=== PATIENT | female | born 1945 | race Caucasian/White ===

== ENCOUNTER → 2018-02-09 09:18 | Outpatient (CLI) | payer MEDICARE, SELFPAY ==
--- NOTE | 2018-02-09 09:23 | RAD_ITS ---
PROCEDURE: Fluoroscopic guided Hip Injection DATE: February 09, 2018. INDICATION: Female, 72 years old. Chronic hip pain. PHYSICIAN: Gary Kerr M.D. MEDICATIONS: 80 mg of Depomedrol, 4 cc of 1% lidocaine. 2% Lidocaine administered subcutaneously for local anesthesia. ACCESS SITE: Left hip. NEEDLE: 22-gauge spinal needle. FLUOROSCOPY TIME (if supplied): (24 seconds) minutes/seconds FINDINGS: The risks, benefits, and alternatives to the procedure were explained to the patient. The specific risks of bleeding, infection, and neurovascular injury were detailed and accepted. Witnessed informed consent was obtained. A 22-gauge spinal needle was positioned under radiographic fluoroscopic localization. Approximately 2 cc of Isovue-300 instilled for localization purposes. Medication was then injected. The patient tolerated the procedure well without any immediate complications. The patient was placed supine with head elevated and returned to the floor in stable condition. RAD/Inj/Asp Gustavo Jt Should/Hip/Knee IMPRESSION: 1. Successful fluoroscopic guided hip injection. Electronically Signed: Gary Kerr MD at 10:23 EDT Tel [phone], Service support ,
== END ==
PROVIDERS: Family Provider Family Medicine; PCP Family Medicine; Visit Provider Family Medicine
DX: G89.29 Other chronic pain (principal); M25.559 Pain in unspecified hip; M19.90 Unspecified osteoarthritis, unspecified site
CPT/HCPCS: 20610; 77002; Q9965

== ENCOUNTER → 2018-02-14 07:25 | Outpatient (CLI) | payer MEDICARE, SELFPAY ==
--- NOTE | 2018-02-14 07:27 | BI_ITS ---
MAMMOGRAPHY - BILATERAL SCREENING REASON FOR EXAM: Female, 72 years old. Routine annual screening examination. PERTINENT HISTORY: Aunt with breast cancer. Remote left ultrasound-guided breast biopsy. TECHNIQUE: Digital bilateral breast clemencia (3D mammographic acquisition) in the CC and MLO projections. 2-D mediolateral oblique (MLO) and craniocaudad (CC) views of both breasts were obtained. CAD: Full Field Digital Mammography with Computer Added Detection was performed. COMPARISON: Comparison is made with prior examination dated February 04, 2017 and January 26, 2016. FINDINGS: Breast Composition: There are scattered areas of fibroglandular density. There are no dominant masses or suspicious calcifications. Stable 8.1 mm well-defined nodule in the lateral retroareolar region of the left breast. A tissue clip marker is seen at that site. No new abnormality is seen. No other significant abnormalities are identified. There has been no significant change since the prior study. BI/SCREENING MAMM (CAD), BILAT IMPRESSION: Stable bilateral screening mammogram. Yearly follow-up mammogram recommended. (A) ASSESSMENT CATEGORY: BIRADS Category 2: Benign. A letter regarding these results will be sent to the patient by the facility within 30 days. Approximately 10% of breast cancers are not detected by mammography. A normal mammogram should not delay biopsy of a clinically suspicious abnormality. [id number] Electronically Signed: Gary Kerr MD at 8:13 EDT Tel [phone], Service support ,
== END ==
PROVIDERS: Family Provider Family Medicine; PCP Family Medicine; Visit Provider Family Medicine
DX: Z12.31 Encounter for screening mammogram for malignant neoplasm of breast (principal)
CPT/HCPCS: 77063; 77067

== ENCOUNTER → 2018-11-10 12:23 | Outpatient (CLI) | payer MEDICARE, SELFPAY ==
--- NOTE | 2018-11-10 12:26 | RAD_ITS ---
STUDY: X-RAY CHEST REASON FOR EXAM: Female, 72 years old. Cough. TECHNIQUE: PA and lateral chest. COMPARISON: None. FINDINGS: The lungs are clear and expanded. There is no demonstrated pleural abnormality. Normal size heart. Normal mediastinum and marcos. Normal visualized pulmonary arteries. Normal visualized aortic arch and descending thoracic aorta. Normal visualized thoracic spine. Normal visualized ribs, clavicles, and shoulders. There is no demonstrated abnormality of the visualized soft tissue structures of the upper abdomen. RAD/Chest PA and Lateral IMPRESSION: No acute cardiopulmonary disease. Electronically Signed: Stephen Gan MD at 7:57 EST , Service support ,
== END ==
PROVIDERS: Family Provider Family Medicine; PCP Family Medicine; Referring Provider Family Medicine; Visit Provider Family Medicine
DX: R05 Cough (principal)
CPT/HCPCS: 71046

== ENCOUNTER 2018-12-16 12:29 | Emergency (ER) | payer MEDICARE, SELFPAY ==
[2018-12-16 12:30] VITALS: BP 112/67; PULSE 89; RESP 15; TEMP 38.3; O2SAT 97; BMI 23.5
[2018-12-16 12:56] VITALS: O2SAT 98
--- NOTE | 2018-12-16 13:00 | CT_ITS ---
STUDY: CTA CHEST REASON FOR EXAM: Female, 73 years old. Cough for 3 months RADIATION DOSAGE (If Supplied By Facility): CTDIvol = ( 14.37 ) mGy, DLP = ( 400.54 ) mGycm TECHNIQUE: The examination was performed with the intravenous administration of Isovue 370 75 IV. Post-processing of the angiographic images was performed, with multiplanar reformation and 3D reconstruction. Individualized dose optimization techniques were used for this CT. COMPARISON: November 10, 2018 CT scan abdomen and pelvis FINDINGS: Normal enhancement of the main pulmonary artery and right and left pulmonary arteries. Normal enhancement of the bilateral peripheral pulmonary arteries. There is no demonstrated pulmonary embolism. The aorta is tortuous. There is a ductus diverticulum present in the underside of the aorta lateral view image 172 series axial T2. There is no demonstrated aortic dissection. There is borderline cardiac enlargement. There is a mild to moderate pericardial effusion. At the base of the heart measuring up to 1 cm. Normal mediastinum. Normal hilar regions. Normal visualized trachea and bronchi. There is biapical scarring. There are few scattered areas of lucency suggesting air trapping. There is a small left pleural effusion. There is associated minimal lower lobe atelectasis. This is also associated with a subtle focus of diaphragmatic herniation. There is a trace focus of right pleural fluid. Normal chest wall structures. There are degenerative changes of thoracic spine. The liver appears fatty infiltrated. Within the posterior aspect of the right hepatic lobe there is a well-circumscribed 1 cm cystic structure. There is a hiatal hernia measuring 2.[address]/CTA Chest W/WO Contrast IMPRESSION: No evidence of pulmonary embolism. No evidence of aortic dissection. Small to moderate pericardial effusion. Borderline cardiomegaly.. Small left greater than right effusions minimal atelectasis. Few areas of minimal air trapping. Benign-appearing hepatic cysts. Small hiatal hernia. Electronically Signed: Layne Calvo MD at 14:25 EDT Tel , Service support ,
[2018-12-16] MEDS: 0.9% Normal Saline 1,000 ML 1000 ML IV (13:31)
[2018-12-16 13:33] VITALS: BP 128/73; PULSE 90; RESP 14; TEMP 36.7; O2SAT 97
[2018-12-16 13:38] LABS: Mucous, Urine 0 SEEN /hpf (<or=2+)
[2018-12-16 13:40] LABS: Absolute Lymphocyte Count 1.36 X10^3/ul (0.83-4.51); Absolute Neutrophil Count 6.7 X10^3/uL (2.0-7.7); Basophil# 0.03 X10^3/uL; Basophil% 0.3 % (0-1); Eosinophil# 0.12 X10^3/uL; Eosinophils% 1.3 % (0-5); Hematocrit 34.6 % (37-47); Hemoglobin 10.6 g/dl (12.0-15.0); Lymphocyte # 1.36 X10^3/ul (4.0); Lymphocyte % 14.5 % (19-41); Mean Corp Hgb Conc 30.6 g/gl (32-36); Mean Corpuscular Hgb 28.4 pg (27.0-32.0); Mean Corpuscular Volume 92.8 fL (81-99); Mean Platelet Vol. 9.1 fl (6.2-12.0); Monocyte# 1.19 X10^3/uL; Monocyte% 12.7 % (0-10); Neutrophil # 6.68 X10^3/uL (2.7-7.7); Platelet Count 412 K/mm3 (150-450); RBC Distribution Width CV 12.1 % (11.6-14.6); RBC Distribution Width SD 39.8 fl (35.1-43.9); Red Blood Count 3.73 M/mm3 (4.2-5.4); White Blood Count 9.4 K/mm3 (4.4-11.0)
[2018-12-16 13:42] LABS: International Normalized Ratio 1.3; Prothrombin Time (Protime)PT. 15.7 SECONDS (11.7-14.9)
[2018-12-16 13:43] LABS: POSITIVE COUNT NO; POSITIVE DIFFERENTIAL NO; POSITIVE MORPHOLOGY NO; Partial Thromboplast Time 42.2 Seconds (24.1-36.2)
--- NOTE | 2018-12-16 13:43 | ED.DCSUM_ITS ---
- ER Visit Summary Date of Service: 12/16/18 Chief Complaint: Shortness of breath and cough History of Present Illness: The patient is a 73 F who presents with shortness of breath and cough that has been getting worse over the past 2 months. Patient states she has had a fever of 102 at home. Patient states her breathing is worse with any exertion. Patient states she is coughing up some white sputum with some blood streaks. Patient denies any chest pain. Patient denies any sore throat or rhinorrhea. Patient has been on Levaquin for the past 8 days. Patient was on Zithromax prior to that. Physical Examination: Vital signs are stable. Patient was febrile here with a temperature of 101.0. Patient is in no acute distress. Oral mucosa is pink and moist. Neck is supple. Trachea is midline. There is no JVD noted. Heart was regular rate and rhythm. Lungs are clear and equal bilaterally. There is good respiratory effort noted. Abdomen is soft. Bowel sounds are normal. There is no tenderness noted. Extremities are intact x4. There is no edema noted. There is no calf tenderness noted. Test Results: CBC was normal. Basic metabolic profile was normal. Urinalysis shows leukocyte esterase of 100, white blood cell count of 10-25, red blood cell count of 10-25, and 0-5 epithelial cells. CTA of the chest was obtained. There is no evidence of pulmonary embolism or dissection. Patient has bilateral mild effusions and minimal atelectasis. There is a small pericardial effusion. Emergency Department Course and Treatment: Given a dose of Macrobid here. Patient was given a prescription for Macrobid. Case was discussed with Dr. James. He will follow-up with the patient as an outpatient. Patient was instructed to finish her Levaquin as prescribed. Patient understood and was agreeable with the plan. All questions were answered. Disposition: Discharge home Impression: 1. Acute febrile illness 2. Urinary tract infection This note was generated with [employer] dictation software. It may contain incorrect words, spelling, and punctuation that were not noted in review of the chart prior to signing ED Disposition - Plan for ED Patient: Disposition: Home or Assisted Living Diagnosis: Urinary tract infection, Acute febrile illness Instructions: ED Fever Unconf Cause, ED UTI Cystitis Female Prescriptions: Nitrofurantoin Macrocrystals [Macrobid] 100 mg PO Q12 #14 cap Referrals: Ranney,Vick, MD [Primary Care Provider] - 3-5 Days
[2018-12-16 13:47] LABS: Anion Gap 7 (5-15); BUN 18 mg/dL (7-18); BUN/Creat Ratio 19.2 RATIO (10-20); Calcium,Total 9.2 mg/dL (8.5-10.1); Chloride 101 mmol/L (98-107); Creatinine, Serum 0.94 mg/dL (0.55-1.02); EST Glomerular Filtration Rate 62 mL/min (>60); Est Glom Filt Rate - Afr Amer 75 mL/min (>60); Estimated Creatinine Clearance 46.71 ml/min; Glucose 104 mg/dL (74-106); Potassium 4.6 mmol/L (3.5-5.1); Sodium Level 137 mmol/L (136-145)
[2018-12-16 13:52] LABS: Color, Urine Yellow (Yellow); Glucose, Dipstick Normal (Normal); Ketone-Dipstick Negative (Negative); Leukocyte Esterase-Dipstick 100 /ul (Negative); Nitrite-Dipstick Negative (Negative); Occult Blood-Urine 150 /ul (Negative); Protein-Dipstick Negative (Negative); Specific Gravity, Urine 1.005 (1.002-1.030); Urine Bilirubin Dipstick Negative (Negative); Urine Clarity Sl. Cloudy (Clear); Urine Urobilinogen 1 mg/dl (Normal)
[2018-12-16 13:58] LABS: Red Blood Cells-Urine 10-25 SEEN /hpf (0-5); Squamous Epithelial Cells - UA 0-5 SEEN /hpf (5-10); White Blood Cells 10-25 SEEN /hpf (0-5)
[2018-12-16 13:59] LABS: Bacteria 1+ /hpf (None Seen)
[2018-12-16 14:00] VITALS: BP 112/64; PULSE 91; RESP 14; TEMP 36.8; O2SAT 96
[2018-12-16 15:42] VITALS: BP 117/74; PULSE 89; RESP 16; O2SAT 97
--- NOTE | 2018-12-18 15:13 | CASEMGMT ---
Called patient to f/u post ER visit, left a VM to contact this group underwriter if having any questions/concerns regarding care. Catina Mccann RNCM
== END 2018-12-16 15:43 | disposition home or self-care (01) ==
PROVIDERS: Emergency Provider Emergency Medicine; Family Provider Family Medicine; PCP Family Medicine
DX: R50.9 Fever, unspecified (principal); N39.0 Urinary tract infection, site not specified; Z87.891 Personal history of nicotine dependence; I31.3 Pericardial effusion (noninflammatory); R06.02 Shortness of breath
CPT/HCPCS: 36415; 71275; 80048; 81001; 85025; 85610; 85730; 87040; 87086; 87088; 99284; J7030; Q9967; A4216

== ENCOUNTER → 2019-02-03 13:16 | Outpatient (CLI) | payer MEDICARE, SELFPAY ==
[2019-02-03 13:57] LABS: Hematocrit 34.3 % (37-47); Hemoglobin 10.2 g/dl (12.0-15.0); Mean Corp Hgb Conc 29.7 g/gl (32-36); Mean Corpuscular Hgb 25.6 pg (27.0-32.0); Platelet Count 495 K/mm3 (150-450); RBC Distribution Width CV 14.8 % (11.6-14.6); RBC Distribution Width SD 44.7 fl (35.1-43.9); Red Blood Count 3.99 M/mm3 (4.2-5.4)
[2019-02-03 13:59] LABS: Scan Indicated on CBC? Y/N NO
[2019-02-03 14:14] LABS: ALB/GLOB Ratio 0.5 RATIO (0.9-2.4); AST(SGOT) 13 U/L (15-37); Alanine Aminotransfer ALT/SGPT 13 U/L (13-56); Albumin, Serum 2.7 g/dL (3.2-5.0); Alkaline Phosphatase 101 U/L (45-117); Anion Gap 2 (5-15); BUN 14 mg/dL (7-18); BUN/Creat Ratio 18.7 RATIO (10-20); Calcium,Total 9.2 mg/dL (8.5-10.1); Chloride 105 mmol/L (98-107); Cholesterol 152 mg/dL (200); Creatinine, Serum 0.75 mg/dL (0.55-1.02); EST Glomerular Filtration Rate 81 mL/min (>60); Est Glom Filt Rate - Afr Amer 98 mL/min (>60); Globulin 5.2 g/dL (2.2-4.2); Glucose 98 mg/dL (74-106); High Density Lipoprotein 41 mg/dL; Potassium 4.4 mmol/L (3.5-5.1); Protein, Total 7.9 g/dL (6.4-8.2); Sodium Level 137 mmol/L (136-145); Thyroid Stim Hormone (TSH) 1.04 uIU/mL (0.358-3.74); Triglycerides 139 mg/dL; Very Low Density Lipoprotein 28 mg/dL (5-40)
== END ==
PROVIDERS: Family Provider Family Medicine; PCP Family Medicine; Referring Provider Family Medicine; Visit Provider Family Medicine
DX: I31.3 Pericardial effusion (noninflammatory) (principal); D64.9 Anemia, unspecified; R06.02 Shortness of breath
CPT/HCPCS: 80053; 80061; 84443; 85027

== ENCOUNTER → 2019-02-09 06:44 | Outpatient (CLI) | payer MEDICARE, SELFPAY ==
--- NOTE | 2019-02-09 08:50 | BRONCHALL_ITS ---
Bronchoprovocation Challenge - Bronchoprovocation Challenge Bronchoprovocation Challenge: BRONCHOPROVOCATION STUDY INTERPRETATION Brief HPI: Patient is a 73 year old female, currently under the care of Malika Stoll, who presents to [facility] for a bronchoprovocation study secondary to diagnosis of cough. Respiratory therapist reports good effort and reproducible results. Interpretation: Initial spirometry showed no large airways obstructive ventilatory defect. The patient was then given increasingly concentrated doses of methacholine in a stepwise fashion, using a modified ATS protocol. The patient?s maximum reduction in FEV1 was 5 percent predicted. Impression: Negative Bronchoprovocation study. This is NOT consistent with the diagnosis of asthma.
== END ==
PROVIDERS: Family Provider Family Medicine; PCP Family Medicine
DX: R05 Cough (principal)
CPT/HCPCS: 94070; 95070; J3490; J7674

== ENCOUNTER → 2019-03-01 | Outpatient (CLI) | payer MEDICARE, SELFPAY ==
[2019-02-11 16:15] VITALS: BMI 22.4
--- NOTE | 2019-03-01 10:15 | BI_ITS ---
MAMMOGRAPHY - BILATERAL SCREENING REASON FOR EXAM: Female, 73 years old. Routine annual screening examination. PERTINENT HISTORY: Aunts with breast cancer. Prior left ultrasound-guided breast biopsy. TECHNIQUE: Digital bilateral breast red (3D mammographic acquisition) in the CC and MLO projections. 2-D mediolateral oblique (MLO) and craniocaudad (CC) views of both breasts were obtained. CAD: Full Field Digital Mammography with Computer Added Detection was performed. COMPARISON: Comparison is made with prior study dated February 14, 2018 and February 04, 2017. FINDINGS: Breast Composition: There are scattered areas of fibroglandular density. There are no dominant masses or suspicious calcifications. A tissue clip marker is seen in the 8 mm well-defined nodule in the retroareolar region of the left breast. No other significant abnormalities are identified. There has been no significant change since the prior study. BI/SCREEN MAMM (CAD) W/RED BILAT IMPRESSION: Stable bilateral screening mammogram. Yearly follow-up mammogram recommended. (A) ASSESSMENT CATEGORY: BIRADS Category 2: Benign. A letter regarding these results will be sent to the patient by the facility within 30 days. Approximately 10% of breast cancers are not detected by mammography. A normal mammogram should not delay biopsy of a clinically suspicious abnormality. [id number] Electronically Signed: Gary Kerr, at 12:47 EDT , Service support ,
== END | disposition home or self-care (01) ==
PROVIDERS: Family Provider Family Medicine; PCP Family Medicine; Referring Provider Family Medicine; Visit Provider Family Medicine
DX: Z12.31 Encounter for screening mammogram for malignant neoplasm of breast (principal)
CPT/HCPCS: 77063; 77067

== ENCOUNTER → 2019-03-10 06:39 | Outpatient (CLI) | payer MEDICARE, SELFPAY ==
[2019-02-11 16:15] VITALS: BMI 22.4
--- NOTE | 2019-03-10 06:45 | ECHOL_ITS ---
Reason For Study: SOB Procedure This was a limited 2D transthoracic echocardiogram. Limited views were obtained. Exam performed in department. Left Ventricle Normal LV size. Left ventricular systolic function is normal. The estimated ejection fraction is 65 %. Unable to assess diastolic dysfunction. No regional wall motion abnormalities noted. Right Ventricle Normal RV size. Normal systolic function. Atria Normal left atrium. Normal right atrium. Mitral Valve There is no mitral annular calcification. Normal mitral valve. Tricuspid Valve Normal tricuspid valve. Aortic Valve Trisinus/trileaflet aortic valve. Mild focal aortic valve calcification. Pulmonic Valve The pulmonic valve is not well visualized. Pericardium/Pleural Epicardial fat. Trivial pericardial effusion. There are no echocardiographic indications of cardiac tamponade. MMode/2D Measurements & Calculations LVIDd: 3.6 cm IVSd: 0.99 cm LA dimension(2D): 2.6 cm LVIDs: 2.0 cm LVPWd: 0.88 cm FS: 43.3 % Interpretation Summary Limited views were obtained. Left ventricular systolic function is normal. The estimated ejection fraction is 65 %. Mild focal aortic valve calcification. Epicardial fat. Trivial pericardial effusion. There are no echocardiographic indications of cardiac tamponade. Unable to assess diastolic dysfunction. Ordering Physician: Dallas Jain Referring Physician: MD Jacob Balaji Performed By: Gely Garcia, CS
--- NOTE | 2019-03-10 09:54 | STRESSREP ---
Stress Test Report Date: 03-10-19 Procedure: Exercise tolerance test/imaging study Indications: Discomfort/tightness; shortness of breath/dyspnea on exertion; fatigue; pericardial effusion Consent: Per the patient Procedure: The patient exercised on a Matias protocol for 6 minutes completing Stage II achieving a peak heart rate of 137 bpm (92 % predicted maximal heart rate) with a peak blood pressure 152/70 mmHg and a peak MET capacity of 7 METs. The baseline ECG demonstrated normal sinus rhythm. The peak exercise ECG demonstrated no obvious ECG changes. There were no cardiac dysrhythmias pretest, during exercise, or recovery. The functional capacity was considered good. There was no complaint of chest discomfort during exercise or recovery. The examination was discontinued secondary to dyspnea. Impression: 1. Technically adequate (percent predicted maximal heart rate greater than 85%) exercise tolerance test 2. Peak exercise ECG demonstrated no obvious ECG changes 3. There were no cardiac dysrhythmias pretest, during exercise, or recovery 4. Nuclear images pending Myocardial perfusion imaging study: Technique: The patient was injected with 11.3 mCi of technetium 99m Cardiolite and subsequently rest SPECT Cardiolite nuclear imaging was obtained in the horizontal long, vertical long, and short axis views. The patient exercised on a Matias protocol for 6 minutes completing Stage II achieving a peak heart rate of 137 bpm (92 % predicted maximal heart rate) with a peak blood pressure 152/70 mmHg and a peak MET capacity of 7 METs. The patient was injected with 33.4 mCi of technetium 99m Cardiolite and subsequently stress SPECT Cardiolite nuclear imaging was obtained in the horizontal long, vertical long, and short axis views. A gated Cardiolite study at peak stress was obtained. Interpretation: Rest and stress SPECT Cardiolite nuclear imaging status post realignment, normalization, and attenuation correction, demonstrates the appearance of relative uniform tracer uptake and myocardial perfusion appearing within normal limits. There is end systolic thickening and brightening. The gated Cardiolite study demonstrates myocardial thickening and inward wall motion. The reported LVEF is 79 %. Impression: 1. Rest and stress SPECT Cardiolite nuclear imaging demonstrate relative uniform tracer uptake and myocardial perfusion appearing within normal limits. 2. The gated Cardiolite study reports an LVEF of the 79 %. This note was generated with [employer] software. It may contain incorrect words, spelling, and punctuation that were not noted in checking the note before signing.
== END ==
PROVIDERS: Family Provider Family Medicine; PCP Family Medicine; Referring Provider Internal Medicine Cardiovascular Disease; Visit Provider Internal Medicine Cardiovascular Disease
DX: I31.3 Pericardial effusion (noninflammatory) (principal); R06.09 Other forms of dyspnea; R53.83 Other fatigue
CPT/HCPCS: 78452; 93017; 93308; A9500; A4216

== ENCOUNTER → 2019-03-18 14:00 | Outpatient (CLI) | payer MEDICARE, SELFPAY ==
[2019-02-11 16:15] VITALS: BMI 22.4
[2019-03-18 14:28] LABS: Hematocrit 35.2 % (37-47); Hemoglobin 10.4 g/dl (12.0-15.0); Mean Corp Hgb Conc 29.5 g/gl (32-36); Mean Corpuscular Hgb 24.8 pg (27.0-32.0); Mean Corpuscular Volume 83.8 fL (81-99); Mean Platelet Vol. 8.8 fl (6.2-12.0); Platelet Count 421 K/mm3 (150-450); RBC Distribution Width CV 15.7 % (11.6-14.6); RBC Distribution Width SD 48.1 fl (35.1-43.9); White Blood Count 8.2 K/mm3 (4.4-11.0)
[2019-03-18 14:35] LABS: Scan Indicated on CBC? Y/N NO
[2019-03-18 14:39] LABS: Erythrocyte Sedimentation Rate 39 mm/hr (0-30)
[2019-03-18 14:41] LABS: Creatinine, Serum 0.77 mg/dL (0.55-1.02); EST Glomerular Filtration Rate 79 mL/min (>60); Est Glom Filt Rate - Afr Amer 95 mL/min (>60); Ferritin 527 ng/mL (8-252); Iron Binding Capacity,Total 221 ug/dL (250-450); Thyroid Stim Hormone (TSH) 1.24 uIU/mL (0.358-3.74)
[2019-03-18 14:45] LABS: Vitamin B12 332 pg/mL (211-911)
== END ==
PROVIDERS: Family Provider Family Medicine; PCP Family Medicine; Referring Provider Family Medicine; Visit Provider Family Medicine
DX: R53.83 Other fatigue (principal); D64.9 Anemia, unspecified; Z13.89 Encounter for screening for other disorder
CPT/HCPCS: 82565; 82607; 82728; 83550; 84443; 85027; 85652

== ENCOUNTER → 2019-08-06 15:57 | Outpatient (CLI) | payer MEDICARE, SELFPAY ==
[2019-05-14 13:10] VITALS: BMI 21.9
[2019-08-06 16:32] LABS: Hematocrit 42.3 % (37-47); Hemoglobin 13.4 g/dL (12.0-15.0); Mean Corp Hgb Conc 31.7 g/dL (32-36); Mean Corpuscular Hgb 28.2 pg (27.0-32.0); Mean Corpuscular Volume 89.1 fL (81-99); Mean Platelet Vol. 9.2 fl (6.2-12.0); Platelet Count 368 K/mm3 (150-450); RBC Distribution Width CV 15.2 % (11.6-14.6); RBC Distribution Width SD 49.6 fl (35.1-43.9); Red Blood Count 4.75 M/mm3 (4.2-5.4); White Blood Count 8.2 K/mm3 (4.4-11.0)
[2019-08-06 16:41] LABS: Erythrocyte Sedimentation Rate 28 mm/hr (0-30)
[2019-08-06 16:53] LABS: Iron Binding Capacity,Total 288 ug/dL (250-450)
== END ==
PROVIDERS: Family Provider Family Medicine; PCP Family Medicine; Referring Provider Family Medicine; Visit Provider Family Medicine
DX: D64.9 Anemia, unspecified (principal); M35.3 Polymyalgia rheumatica; M25.511 Pain in right shoulder; M25.512 Pain in left shoulder
CPT/HCPCS: 83550; 85027; 85652

== ENCOUNTER → 2020-03-03 07:46 | Outpatient (CLI) | payer MEDICARE, SELFPAY ==
[2019-05-14 13:10] VITALS: BMI 21.9
--- NOTE | 2020-03-03 07:52 | BI_ITS ---
MAMMOGRAPHY - BILATERAL SCREENING REASON FOR EXAM: Female, 74 years old. Routine annual screening examination. PERTINENT HISTORY: Aunts with breast cancer. History of prior left ultrasound-guided breast biopsy. TECHNIQUE: Digital bilateral breast red (3D mammographic acquisition) in the CC and MLO projections. 2-D mediolateral oblique (MLO) and craniocaudad (CC) views of both breasts were obtained. CAD: Full Field Digital Mammography with Computer Added Detection was performed. COMPARISON: Comparison is made with prior examination dated March 01, 2019 and February 14, 2018. FINDINGS: Breast Composition: The breasts are almost entirely fatty. There are no dominant masses or suspicious calcifications. A tissue clip marker is seen in an 8 mm well-defined nodule in the retroareolar region of the left breast this is unchanged. Stable benign appearing bilateral axillary lymph nodes. No other significant abnormalities are identified. There has been no significant change since the prior study. BI/SCREEN MAMM (CAD) W/RED BILAT IMPRESSION: Stable bilateral screening mammogram. Yearly follow-up mammogram recommended. (A) ASSESSMENT CATEGORY: BIRADS Category 2: Benign. A letter regarding these results will be sent to the patient by the facility within 30 days. Approximately 10% of breast cancers are not detected by mammography. A normal mammogram should not delay biopsy of a clinically suspicious abnormality. [id number] Electronically Signed: Gary Kerr, at 9:06 EDT , Service support ,
== END ==
PROVIDERS: PCP Family Medicine; Referring Provider Family Medicine; Visit Provider Family Medicine
DX: Z12.31 Encounter for screening mammogram for malignant neoplasm of breast (principal)
CPT/HCPCS: 77063; 77067

== ENCOUNTER → 2024-04-08 | Outpatient (CLI) | payer MEDICARE, SELFPAY ==
--- NOTE | 2024-04-08 | COLBX_PTH ---
PATIENT: ALEXANDRA BETANCOURT LOC: [facility] U#:[id number] AGE/SX: 78/F ROOM: RE04/08/[address]: Dr. Pradeep Matthews MD : 1945 BED: DIS: 04/08/2024 SPEC #: [id number] RECD: 04/08/24 15:26 STATUS: NIKKY CAROLE #: [id number] ROCIO: 04/08/24 00:[address]: Pradeep Matthews DEPT: SURGICAL PATHOLOGY RECD BY: Rita Catherine ENTERED: 04/09/24 09:14 SP TYPE: COLON BX OTHR DR: Balaji James MD Tissues: COLON BIOPSY Procedures: Surgery Specimen Level IV HEADER OPERATION: Colonoscopy PRE-OP DIAGNOSIS: Positive Cologuard test TISSUE SUBMITTED: Appendiceal orifice colon polyp MICROSCOPIC DIAGNOSIS Appendiceal orifice colon polyp, biopsy: Fragments of tubulovillous adenoma. WILLY/ 04/12/2024 MICROSCOPIC DESCRIPTION Slides are reviewed. GROSS DESCRIPTION Received in fixative is one container labeled with the patient's name and designated Appendiceal orifice colon polyp. The specimen consists of multiple irregular fragments of light olivia soft tissue that in aggregate measure 2.0 x 0.3 x 0.1 cm. The specimen is totally submitted in one cassette. WILLY/ 04/09/2024 TC:1 CPT:13121
--- NOTE | 2024-04-08 | COLBX_PTH ---
PATIENT: ALEXANDRA BETANCOURT LOC: [facility] U#:[id number] AGE/SX: 78/F ROOM: RE04/08/[address]: Dr. Pradeep Matthews MD : 1945 BED: DIS: 04/08/2024 SPEC #: [id number] RECD: 04/08/24 15:26 STATUS: NIKKY CAROLE #: [id number] ROCIO: 04/08/24 00:[address]: Pradeep Matthews DEPT: SURGICAL PATHOLOGY RECD BY: Rita Catherine ENTERED: 04/09/24 09:14 SP TYPE: COLON BX OTHR DR: Balaji James MD Tissues: COLON BIOPSY Procedures: Surgery Specimen Level IV HEADER OPERATION: Colonoscopy PRE-OP DIAGNOSIS: Positive Cologuard test TISSUE SUBMITTED: Appendiceal orifice colon polyp MICROSCOPIC DIAGNOSIS Appendiceal orifice colon polyp, biopsy: Tubulovillous adenoma. WILLY/ 04/12/2024 MICROSCOPIC DESCRIPTION Slides are reviewed. GROSS DESCRIPTION Received in fixative is one container labeled with the patient's name and designated Appendiceal orifice colon polyp. The specimen consists of multiple irregular fragments of light olivia soft tissue that in aggregate measure 2.0 x 0.3 x 0.1 cm. The specimen is totally submitted in one cassette. WILLY/ 04/09/2024 TC:1 CPT:88332
== END | disposition home or self-care (01) ==
LOC: LABSPEC 15:26
PROVIDERS: PCP Family Medicine; Referring Provider Surgery; Visit Provider Surgery
DX: K63.5 Polyp of colon (principal)
CPT/HCPCS: 88305